=== PATIENT | female | born 2005 | race Hispanic/Latino ===

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

== ENCOUNTER 2025-03-17 20:30 | Emergency (ER) | payer BC, MEDICAID ==
[~2025-03-17] VITALS: Ht 167.6 cm; Wt 83.9 kg
[2025-03-17 21:01] LABS: BASOPHILS # (AUTO) 0.06 K/uL (0.00-0.20); BASOPHILS % (AUTO) 0.9 % (0.0-5.0); EOSINOPHILS # (AUTO) 0.11 K/uL (0.00-0.70); EOSINOPHILS % (AUTO) 1.6 % (0.0-8.0); HEMATOCRIT 39.4 % (36-48); IMMATURE GRANULOCYTE ABSOLUTE 0.01 K/uL (0-1); LYMPHOCYTES # (AUTO) 2.7 K/uL (1.0-4.8); LYMPHOCYTES % (AUTO) 39.6 % (21.0-51.0); MEAN CORPUSCULAR HGB CONC 34.3 g/dL (32.0-36.0); MEAN CORPUSCULAR VOLUME 90.4 fL (80-100); MONOCYTES # (AUTO) 0.5 K/uL (0.1-1.0); NEUTROPHILS # (AUTO) 3.4 K/uL (1.8-7.7); NEUTROPHILS % (AUTO) 50.8 % (40.0-77.0); PLATELET COUNT (AUTO) 274 K/uL (130-400); RED BLOOD CELL COUNT(AUTO) 4.36 MIL/uL (4.00-5.50); RED CELL DISTRIBUTION WIDTH 12.5 % (11.0-15.5); WHITE BLOOD COUNT (AUTO) 6.7 K/uL (4.8-10.8)
[2025-03-17] MEDS: acetaMINOPHEN 500 MG TABLET PO ONE (21:03)
[2025-03-17 21:09] LABS: CREATININE 0.6 mg/dL (0.5-1.0); POTASSIUM 3.7 mmol/L (3.5-5.1)
[2025-03-17 21:17] LABS: APPEARANCE,URINE CLEAR (CLEAR); BILIRUBIN,URINE NEGATIVE (NEGATIVE); COLOR,URINE LIGHT-YELLOW (YELLOW); GLUCOSE, URINE (UA) NEGATIVE (NEGATIVE); KETONES,URINE NEGATIVE (NEGATIVE); LEUKOCYTE ESTERASE ,URINE NEGATIVE Leu/uL (NEGATIVE); NITRATE,URINE NEGATIVE (NEGATIVE); OCCULT BLOOD,URINE NEGATIVE (NEGATIVE); PROTEIN,URINE NEGATIVE (NEGATIVE)
[2025-03-17 21:18] LABS: ADD UA MICROSCOPIC YES
[2025-03-17 21:19] LABS: ALBUMIN 4.2 g/dL (3.5-5.0); BILIRUBIN,DIRECT 0.1 mg/dL (0.0-0.3); BILIRUBIN,TOTAL 0.2 mg/dL (0.2-1.0); TOTAL PROTEIN, SERUM 7.7 g/dL (6.0-8.3)
[2025-03-17 21:20] LABS: BACTERIA,URINE FEW /HPF (None Seen); MUCUS,URINE RARE LPF (None Seen); OTHER CASTS, URINE 1 /LPF (None Seen); SQUAMOUS EPITHELIAL CELL,UR FEW /HPF (0-2)
--- NOTE | 2025-03-17 22:31 | ERN ---
ED Note History of Present Illness Stated Complaint: , ABDOMINAL PAIN Chief Complaint: Abdominal Pain Time Seen by MD: 20:39 Time Seen by Midlevel: 20:39 Dictation: The patient is a 19-year-old with no past medical history who presents to the e mergency department with the epigastric abdominal pain associated with nonbloody diarrhea onset last night. Patient reports nausea but no vomiting. Denies any fevers. Patient reports being her last menstrual period was in January. Patient reports she has not follow up with the OBGYN but has an appointment for the of March 30. Denies any lower abdominal pain. Denies any vaginal bleeding or discharge. Allergies: Coded Allergies: No Known Allergies (Unverified Allergy, Unknown, 03/17/25) Past Medical History Past Medical History: No Pertinent History Surgical History: None LMP: January 18, 2025 : 1 Para: 0 Aborts: 0 RN Note Reviewed/Agreed w/PFSH: Yes Review of System Dictation Constitutional: Negative for fever,chills, and weight loss Eyes: Negative for injury, pain,redness, and discharge ENT: Negative for injury,pain or swelling Cardiovascular: Negative for chest pain, palpitations, and edema Respiratory: Negative for shortness of breath, cough, and wheezing, Abdomen/GI: Negative for vomiting, diarrhea, and constipation positive for abdominal pain, diarrhea Back: Negative for injury and pain : Negative for injury, bleeding and discharge MS/Extremity: Negative for injury and deformity Skin: Negative for rash, and discoloration Neuro: Negative for headache, weakness, numbness, tingling, and seizure Psych: Negative for suicide ideation, homicidal ideation, and hallucinations Initial Vital Sign VS Vital Signs Date Time Temp Pulse Resp B/P (MAP) Pulse Ox O2 Delivery O2 Flow Rate FiO2 03/17/25 20:32 98.8 88 16 133/92 99 Room Air 0 Physical Exam Dictation Vital Signs reviewed General Appearance: Alert, oriented x 3, no acute distress, well developed, nourished. Head and Face: non-traumatic. Eyes: PERRL, pink conjunctivas, eyelid no trauma, anterior chamber with arcus senilis. Ears: Pinnas intact and no signs of trauma or erythema ear canals clear and no discharge TM no erythema Nose: No discharge, no bleeding. Oropharynx: Mouth normal, tongue pink. pharynx clear,no erythema, tonsils no exudates, no abscesses noted, mucous membrane moist Neck: Supple, non-tender, no thyromegaly, no masses, no JVD, no bruits Breast:Deferred Chest:No tenderness, no crepitus, no paradoxical movement, no retractions Lungs:Clear, well-ventilated, symmetric, no rales, no wheezing, no rhonchi, no stridor, good breath sounds bilaterally Heart: Regular rate, regular rhythm, no murmur, no gallops Vascular: no peripheral edema, Abdomen: Soft, positive bowel sounds, nondistended, no guarding, nontender, no rebound, no masses no hepatomegaly, no splenomegaly, no Ames's sign, no hernias. Rectal: Deferred Genital: Deferred Neurological: Normal speech, motor function intact, sensory function intact Musculoskeletal: Neck nontender, full range of motion, back nontender, full range of motion, Extremities: nontender, full range of motion Skin: Color pink, dry, no turgor, no rash, no lacerations, no abrasions, no contusions. Lymphatic: Deferred Results (Laboratory/Radiology) Laboratory/Radiology Laboratory Tests Test 03/17/25 20:54 03/17/25 21:07 White Blood Count 6.7 K/uL (4.8-10.8) Red Blood Count 4.36 MIL/uL (4.00-5.50) Hemoglobin 13.5 g/dL (12.0-16.0) Hematocrit 39.4 % (36-48) Mean Corpuscular Volume 90.4 fL (80-100) Mean Corpuscular Hemoglobin 31.0 pg (27.0-33.0) Mean Corpuscular Hemoglobin Concent 34.3 g/dL (32.0-36.0) Red Cell Distribution Width 12.5 % (11.0-15.5) Platelet Count 274 K/uL (130-400) Mean Platelet Volume 10.8 fL (7.5-10.5) H Immature Granulocyte % (Auto) 0.1 % (0-1) Neutrophils (%) (Auto) 50.8 % (40.0-77.0) Lymphocytes (%) (Auto) 39.6 % (21.0-51.0) Monocytes (%) (Auto) 7.0 % (3.0-13.0) Eosinophils (%) (Auto) 1.6 % (0.0-8.0) Basophils (%) (Auto) 0.9 % (0.0-5.0) Neutrophils # (Auto) 3.4 K/uL (1.8-7.7) Lymphocytes # (Auto) 2.7 K/uL (1.0-4.8) Monocytes # (Auto) 0.5 K/uL (0.1-1.0) Eosinophils # (Auto) 0.11 K/uL (0.00-0.70) Basophils # (Auto) 0.06 K/uL (0.00-0.20) Absolute Immature Granulocyte (auto 0.01 K/uL (0-1) Nucleated Red Blood Cells 0.0 % (0.0-0.19) Sodium Level 137 mmol/L (136-145) Potassium Level 3.7 mmol/L (3.5-5.1) Chloride Level 102 mmol/L (101-111) Carbon Dioxide Level 29 mmol/L (21-32) Blood Urea Nitrogen 6 mg/dL (7-18) L Creatinine 0.6 mg/dL (0.5-1.0) Glomerular Filtration Rate Calc 132 mL/min (>90) Random Glucose 104 mg/dL (70-105) Total Calcium 9.1 mg/dL (8.5-10.1) Total Bilirubin 0.2 mg/dL (0.2-1.0) Direct Bilirubin 0.1 mg/dL (0.0-0.3) Aspartate Amino Transf (AST/SGOT) 11 U/L (10-37) Alanine Aminotransferase (ALT/SGPT) 15 U/L (12-78) Alkaline Phosphatase 67 U/L (50-136) Total Protein 7.7 g/dL (6.0-8.3) Albumin 4.2 g/dL (3.5-5.0) Lipase 39 U/L (16-77) Human Chorionic Gonadotropin, Quant 197 mIU/mL (0-5) H Urine Color LIGHT-YELLOW (YELLOW) Urine Appearance CLEAR (CLEAR) Urine pH 6.0 (5.0-8.0) Urine Specific [place] 1.020 (1.001-1.031) Urine Protein NEGATIVE mg/dL (NEGATIVE) Urine Glucose (UA) NEGATIVE mg/dL (NEGATIVE) Urine Ketones NEGATIVE mg/dL (NEGATIVE) Urine Occult Blood NEGATIVE (NEGATIVE) Urine Nitrate NEGATIVE (NEGATIVE) Urine Bilirubin NEGATIVE mg/dL (NEGATIVE) Urine Urobilinogen 2.0 mg/dL (0.2-1.0) H Urine Leukocyte Esterase NEGATIVE Don/uL Urine RBC 2-5 /HPF (0-1) H Urine WBC 2-5 /HPF (0-1) H Urine Squamous Epithelial Cells FEW /HPF (0-2) Urine Bacteria FEW /HPF (None Seen) Urine Other Casts 1 /LPF (None Seen) Labs Reviewed?: Yes ED Course ED Course Orders Procedure Category Date Status Time Cbc With Differential LAB 03/17/25 Complete 20:45 Urinalysis Profile LAB 03/17/25 Complete 20:45 Lipase LAB 03/17/25 Complete 20:45 Basic Metabolic Panel LAB 03/17/25 Complete 20:45 Acetaminophen 500mg PHA 03/17/25 Complete Tab (Tylenol 500mg T 21:00 Hepatic Function Panel LAB 03/17/25 Complete 20:45 Hcg,Quantitative LAB 03/17/25 Complete 20:45 Us Ob <14 Weeks US 03/17/25 Taken 20:45 Current Medications Medications (Trade) Dose Ordered Sig/Alysia Route PRN Reason Start Time Stop Time Status Last Admin Dose Admin Acetaminophen (TYLenol 500MG TAB) 1,000 mg ONCE ONCE PO 03/17/25 21:00 03/17/25 21:01 DC 03/17/25 21:03 Vital Signs Date Time Temp Pulse Resp B/P (MAP) Pulse Ox O2 Delivery O2 Flow Rate FiO2 03/17/25 20:32 98.8 88 16 133/92 99 Room Air 0 Medical Decision Making MDM The patient is a 19-year-old with no past medical history who presents to the emergency department with the epigastric abdominal pain associated with nonblood y diarrhea onset last night. Patient reports nausea but no vomiting. Denies any fevers. Patient reports being her last menstrual period was in January. Patient reports she has not follow up with the OBGYN but has an appointment for the of March 30. Denies any lower abdominal pain. Denies any vaginal bleeding or discharge. CBC showed no leukocytosis, no anemia, chemistry showed no electrolyte imbalance,. Urinalysis unremarkable hCG level of 197. Ultrasound did not revealed an intrauterine . Patient can be early in . Patient instructed to follow up with OBGYN for further evaluation and repeat hCG and u ltrasound. Patient currently having no vaginal bleeding, no lower abdominal pain. Patient's pain is to the epigastric area. On physical exam patient has a nontender abdomen. Stable vital signs. Labs and imaging discussed with the patient who agrees to follow up with OBGYN. Differential diagnosis: Gastritis, gastroenteritis, pancreatitis, pain Need for hospitalization: Patient does not meet criteria for hospitalization. There are no social concerns with this patient. DX & DISP Disposition: Discharge Departure Impression: Primary Impression: Viral gastroenteritis Additional Impressions: Positive test, Abdominal pain Condition: Stable Additional Instructions: Please follow up with your OBGYN as soon as possible. Continue oral hydration as tolerated. If symptoms worsen you develop severe pain or vaginal bleeding please return to ER. You can take Tylenol as needed for pain. FOLLOW-UP WITH PRIMARY CARE PROVIDER IN 1 TO 2 DAYS. TAKE MEDICATIONS DIRE CTED HERE IN THE EMERGENCY ROOM. OKAY TO CONTINUE HOME MEDICATIONS UNLESS OTHERWISE DISCUSSED DURING YOUR VISIT IN THE EMERGENCY ROOM TODAY. RETURN TO YOUR NEAREST EMERGENCY ROOM IF SYMPTOMS WORSEN OR IF THERE IS NO IMPROVEMENT. CALL 911 IF YOU NEED IMMEDIATE ASSISTANCE. TAKE TYLENOL CSQH-PAK-LAHCIGL NEEDED AND IF NO CONTRAINDICATIONS ARE PRESENT. INCREASE ORAL HYDRATION. A WOUND CULTURE OR URINE CULTURE WAS ORDERED HERE IN THE EMERGENCY ROOM DEPARTMENT PLEASE FOLLOW-UP WITH PRIMARY CARE PROVIDER AND ADVISE THEM TO GET REPEAT PORTS FROM OUR FACILITY. IF YOU HAD ANY JASON WRAP/SPLINTS THAT WERE APPLIED HERE, PLEASE DO NOT REMOVE THEM UNTIL YOU SEE YOUR PRIMARY CARE OR SPECIALTY. Referrals: SELF,REFERRAL (PCP) Time of Disposition: 22:28 I have reviewed the case, and I agree with, Diagnosis and Plan IRON SAUL Mar 17, 2025 22:30
[2025-03-17 22:33] VITALS: BP 126/71; PULSE 72; RESP 16; TEMP 97.7; O2SAT 99
--- NOTE | 2025-03-17 23:00 | HMCIMG ---
EXAMINATION: OB ultrasound less than 14 weeks. CLINICAL HISTORY: Pain. Beta-hCG 197. COMPARISON: None provided. TECHNIQUE: Multiple real-time grayscale images of the pelvis were obtained with transabdominal and transvaginal. In addition, color Doppler is medically necessary to perform to assess for vascularity and blood flow. FINDINGS: The uterus is anteverted, normal in caliber and measures 7.3 x 2.8 x 5.5 cm in the craniocaudal, AP, and transverse dimensions respectively. The endometrium measures approximately 10 mm. No evidence of an intrauterine or products of conception. Cervix appears normal. The right ovary is normal in caliber and measures 2.5 x 1.3 x 2.3 cm. The left ovary is normal in caliber and measures 2.1 x 1.2 x 2.0 cm. There is no free fluid in the cul de sac. IMPRESSION: No intrauterine or products of conception visualized. Recommend serial quantitative beta hCG, and follow-up ultrasound imaging. No sonographic abnormality appreciated. /Asher
== END 2025-03-17 22:38 | disposition home or self-care (01) ==
LOC: EDH 20:30
DX: O99.611 Diseases of the digestive system complicating pregnancy, first trimester (principal); A08.4 Viral intestinal infection, unspecified; O26.891 Other specified pregnancy related conditions, first trimester; R10.13 Epigastric pain; R10.2 Pelvic and perineal pain; Z3A.08 8 weeks gestation of pregnancy
CPT/HCPCS: 36415; 76801; 80048; 80076; 81001; 83690; 84702; 85025; 99284